=== PATIENT | male | born 1965 | race Caucasian/White ===

== ENCOUNTER 2018-04-22 10:36 | Emergency (ER) | payer OTHER ==
[2018-04-22 10:50] VITALS: TEMP 97; O2SAT 97; BMI 25.1
[2018-04-22] MEDS ORDERED: Tdap Vaccine 0.5 ml Vial (10-64 yrs) IM ONE ×2 (11:38→11:43)
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
[2018-04-22] MEDS ORDERED: Silver Sulfadiazine 1% Cream (20 gm) TOP STA (11:45)
[2018-04-22] MEDS ORDERED: Silver Sulfadiazine 1% CREAM (50 gm) ONE (11:51)
[2018-04-22 12:19] VITALS: BP 130/78; PULSE 89; RESP 18
== END 2018-04-22 12:14 | disposition home or self-care (01) ==
LOC: H.ER 10:36
DX: T24.232A Burn of second degree of left lower leg, initial encounter (principal)